=== PATIENT | female | born 1950 | race Hispanic/Latino ===

== ENCOUNTER 2017-10-02 07:47 | Outpatient (CLI) | payer MEDICARE ==
--- NOTE | 2017-10-02 09:51 | XRay Report ---
XRAY RIGHT SHOULDER THREE VIEWS: 10/02/17 07:47:00 CLINICAL: Right shoulder pain. FINDINGS: Mild osteopenia. Normal glenohumeral alignment. Normal AC joint. No fracture or dislocation. No bone lesion. Normal soft tissues. IMPRESSION: Osteopenia but otherwise normal.
== END 2017-10-02 07:48 | disposition home or self-care (01) ==
LOC: SPVIMAG 07:47
PROVIDERS: ATTEND Orthopaedic Surgery
DX: M85.811 Other specified disorders of bone density and structure, right shoulder (principal)